=== PATIENT | female | born 1960 | race Caucasian/White ===

== ENCOUNTER → 2016-11-10 | Day surgery (SDC) | payer BC ==
[2016-10-21 13:20] VITALS: BMI 44.0
[~2016-11-10] VITALS: Ht 162.6 cm; Wt 117.7 kg
[~2016-11-10] MED LIST: FENTANYL CITRATE INJ 50 MCG/1 ML 2 ML VIAL ONE; LIDOCAINE HCL 2% 2 ML VIAL (20MG/ML) ONE; LISI40TA PO; MAGN1TAB41 PO; PROPOFOL IV EMULSION 10 MG/ML 20 ML VIAL IV ONE; RANI1TAB77 PO
[2016-11-10 08:37] VITALS: Ht 162.6 cm; Wt 117.7 kg
[2016-11-10 08:41] VITALS: TEMP 36.2
--- NOTE | 2016-11-10 08:54 | Endo History and Physical ---
History & Physical Date of Service: Nov 10, 2016. Chief Complaint: INTESTINAL METAPLASIA OF GASTRIC MUCOSA Referring Physician: DR. SRIKANTH RUSHING History of Present Illness 56 yo CF who presents for EGD secondary to intestinal metaplasia of gastric mucosa. Past Medical History Reflux, Hypertension Past Surgical History Hx Cardiac Surgery: No Hx Internal Defibrillator: No Hx Pacemaker: No Hx Abdominal Surgery: Yes (, D&C) Hx of Implantable Prosthesis: No Hx Post-Op Nausea and Vomiting: No Hx Cancer Surgery: No Hx Thoracic Surgery: No Hx Orthopedic: Yes (RT MENISCUS REPAIR) Hx Urinary Tract Surgery: No Family History Esophogeal CA Social History Smoking Status: Never Smoker Hx Substance Use: No Hx Alcohol Use: Yes (SELDOM) Allergies Coded Allergies: Adhesives (Verified Allergy, Unknown, RASH, 10/21/16) BANDAIDS Codeine (Verified Allergy, Unknown, RASH AND ITCHING, 10/21/16) Current Medications Reported Home Medications Medications Dose Route/Sig Max Daily Dose Days Date Category Zestril (Lisinopril) 40 Mg Tab 40 Mg PO QPM 10/21/16 Reported Ranit[address] (Ranitidine HCl) 150 Mg Tab 1 Tab PO Q12 PRN 11/08/14 Reported Magnesium (Magnesium Oxide) 400 Mg Tab 1 Tab PO DAILY 11/08/14 Reported Vital Signs Weight (Kilograms): 117.73 Height (Feet): 5 Height (Inches): 4 Date Time Temp Pulse Resp B/P (MAP) Pulse Ox O2 Delivery O2 Flow Rate FiO2 11/10/16 08:41 36.2 67 18 172/97 (122) 96 Room Air Physical Exam General Appearance: WD/WN, no apparent distress Respiratory/Chest: Auscultation: breath sounds normal Cardiovascular: Heart Auscultation: RRR Abdomen: Bowel Sounds: normal Inspection & Palpation: soft, non-distended, no tenderness, guarding & rebound Assessment and Plan Assessment: 56 yo CF who presents for EGD secondary to intestinal metaplasia of gastric mucosa. Plan: Proceed with EGD.
--- NOTE | 2016-11-10 09:23 | Discharge Instructions ---
Endoscopy Patient Instructions Date / Procedure(s) Performed Nov 10, 2016. EGD Allergy Information Coded Allergies: Adhesives (Verified Allergy, Unknown, RASH, 10/21/16) BANDAIDS Codeine (Verified Allergy, Unknown, RASH AND ITCHING, 10/21/16) Discharge Date / Findings Nov 10, 2016. Gastritis s/p biopsies Hiatal hernia Medication Instructions OK to resume all medications today as prescribed Reported Home Medications Medications Dose Route/Sig Max Daily Dose Days Date Category Zestril (Lisinopril) 40 Mg Tab 40 Mg PO QPM 10/21/16 Reported Ranitidine [address] (Ranitidine HCl) 150 Mg Tab 1 Tab PO Q12 PRN 11/08/14 Reported Magnesium (Magnesium Oxide) 400 Mg Tab 1 Tab PO DAILY 11/08/14 Reported Provider Instructions Activity Restrictions - No exercising or heavy lifting for 24 hours. - Do not drink alcohol the day of the procedure. - Do not drive a car or operate machinery until the day after the procedure. - Do not make any important decisions or sign important papers in 24 hours after the procedure. Following Day: - Return to full activity which may include returning to work/school. Diet Start your diet with liquids and light foods (jello, soup, juice, toast). Then eat your usual diet if not nauseated. Treatment For Common After Affects For mild abdominal pain, bloating, or excessive gas: - Rest - Eat lightly - Lie on right side Follow-Up Information Follow-up with DR. SRIKANTH RUSHING as scheduled Anesthesia Information What You Should Know You have had a procedure that required some medicine to reduce anxiety and discomfort. This treatment is called moderate sedation. After receiving the treatment, you may be sleepy, but you will be able to breathe on your own. The effects of the treatment may last for several hours. Follow these instructions along with Activity/Diet recommendations noted above: * Do NOT do anything where dizziness or clumsiness would be dangerous. * Rest quietly at home today, then you can be up and about tomorrow. * Have a responsible person stay with you the rest of today. * You may have had an I.V. today. If so, you may take the dressing off later today. Recommendations Call your doctor if: * Trouble breathing * Continuous vomiting for more than 24 hours * Temperature above 101 degrees * Severe abdominal pain or bloating * Pain not relieved by pain medicine ordered * There is increased drainage or redness from any incision * A large amount of rectal bleeding greater than 2-3 tablespoons. (If you had a polyp/s removed or have hemorrhoids, a small amount of blood - from the rectum is to be expected.) * You have any unanswered questions or concerns. IN THE EVENT OF A SERIOUS EMERGENCY, GO TO THE NEAREST EMERGENCY ROOM Your discharge instructions were prepared by provider Narinder Banks. Patient Instructions Signature Page Manuela Lafleur Patient (or Guardian) Signature/Date: I have read and understand the instructions given to me by my caregivers. Caregiver/RN/Doctor Signature/Date: The above-named patient and/or guardian has received patient instructions on this date. + Original Patient Signature Page (only) stays with chart. Please make copy for patient.
--- NOTE | 2016-11-10 09:32 | GI REPORT ---
Procedure Date: 11/10/2016 9:01 AM Procedure: Upper GI endoscopy Indications: Follow-up of intestinal metaplasia Medicines: Monitored Anesthesia Care Complications: No immediate complications. Estimated Blood Loss: Estimated blood loss: none. Procedure: Pre-Anesthesia Assessment: - Prior to the procedure, a History and Physical was performed, and patient medications and allergies were reviewed. The patient's tolerance of previous anesthesia was also reviewed. The risks and benefits of the procedure and the sedation options and risks were discussed with the patient. All questions were answered, and informed consent was obtained. Prior Anticoagulants: The patient has taken aspirin, last dose was 1 day prior to procedure. ASA Grade Assessment: III - A patient with severe systemic disease. After reviewing the risks and benefits, the patient was deemed in satisfactory condition to undergo the procedure. After obtaining informed consent, the endoscope was passed under direct vision. Throughout the procedure, the patient's blood pressure, pulse, and oxygen saturations were monitored continuously. The scope was introduced through the mouth, and advanced to the second part of duodenum. The upper GI endoscopy was accomplished without difficulty. The patient tolerated the procedure well. Findings: The esophagus was normal. A small hiatus hernia was present. Localized mild inflammation characterized by erythema was found in the gastric antrum. Biopsies were taken with a cold forceps for histology. The examined duodenum was normal. Impression: - Normal esophagus. - Small hiatus hernia. - Gastritis. Biopsied. - Normal examined duodenum. Recommendation: - Resume previous diet. - Continue present medications. - Await pathology results. - Return to primary care physician as previously scheduled. Narinder Banks DO 11/10/2016 9:32:17 AM This report has been signed electronically. Note Initiated On: 11/10/2016 9:01 AM I attest to the content of the Intraoperative Record and orders documented therein, exceptions below
[2016-11-10 09:48] VITALS: BP 133/60; PULSE 59; O2SAT 97
--- NOTE | 2016-11-10 09:55 | Anesthesiology Progress Note ---
Anesthesia Post Op Note Date & Time Nov 10, 2016 at 09:55 Vital Signs Pain Intensity: 0 Vital Signs Past 12 Hours Date Time Temp Pulse Resp B/P (MAP) Pulse Ox O2 Delivery O2 Flow Rate FiO2 11/10/16 09:48 59 18 133/60 (84) 97 Room Air 11/10/16 09:33 67 14 127/71 (89) 95 Room Air 11/10/16 09:18 69 14 106/61 (76) 97 Mask 10 11/10/16 08:41 36.2 67 18 172/97 (122) 96 Room Air Notes Mental Status: alert / awake / arousable, participated in evaluation Pt Amnestic to Procedure: Yes Nausea / Vomiting: adequately controlled Pain: adequately controlled Airway Patency, RR, SpO2: stable & adequate BP & HR: stable & adequate Hydration State: stable & adequate Anesthetic Complications: no major complications apparent
== END | disposition home or self-care (01) ==
LOC: C.GI 08:22
PROVIDERS: ATTEND Internal Medicine
DX: K29.70 Gastritis, unspecified, without bleeding (principal); K44.9 Diaphragmatic hernia without obstruction or gangrene; K21.9 Gastro-esophageal reflux disease without esophagitis; I10 Essential (primary) hypertension; Z80.0 Family history of malignant neoplasm of digestive organs